=== PATIENT | male | born 1990 | race Caucasian/White ===

== ENCOUNTER 2024-12-07 23:13 | Inpatient (IN) | payer OTHER ==
[~2024-12-07] VITALS: Ht 170.2 cm; Wt 80.7 kg
[2024-12-07 23:48] LABS: CLARITY URINE CLEAR (CLEAR); COLOR URINE YELLOW (YELLOW); GLUCOSE URINE NEGATIVE (NEGATIVE); KETONES URINE NEGATIVE (NEGATIVE); LEUKOCYTE ESTERASE URINE TRACE (NEGATIVE); NITRITE URINE NEGATIVE (NEGATIVE); OCCULT BLOOD URINE 3+ (NEGATIVE); PH URINE 5.5 (4.5-8.0); PROTEIN URINE TRACE (NEGATIVE); UROBILINOGEN URINE 0.2 E.U./dL (0.2-1.0)
[2024-12-08] MEDS: CEFTRIAXONE 1GM/50ML 50 ML IV ONE (02:00)
[2024-12-08 02:20] LABS: CHLORIDE 102 mEq/L (98-107); SODIUM 137 mEq/L (136-145)
[2024-12-08 02:22] LABS: CALCIUM 9.9 mg/dL (8.7-10.4); CARBON DIOXIDE 27 mEq/L (21-32)
[2024-12-08 02:27] LABS: CREATININE 1.4 mg/dL (0.6-1.3); GLUCOSE 130 mg/dL (70-105); UREA NITROGEN BLOOD 11 mg/dL (9-23)
[2024-12-08 02:29] LABS: ALANINE AMINOTRANSFERASE 24 IU/L (10-49); ALBUMIN 4.8 g/dL (3.2-4.8); ASPARTATE AMINOTRANSFERASE 19 IU/L (<34); BILIRUBIN DIRECT 0.2 mg/dL (<=3.0)
[2024-12-08 02:30] LABS: BILIRUBIN TOTAL 0.9 mg/dL (0.1-1.0); PROTEIN TOTAL 7.5 g/dL (6.0-8.3)
[2024-12-08 02:46] LABS: HEMATOCRIT. 47.8 % (42.0-52.0); HEMOGLOBIN. 16.2 g/dL (14.0-18.0); MEAN CORPUSCULAR HEMOGLOBIN 30.6 pg (28.0-32.0); MEAN CORPUSCULAR HGB CONC 33.8 g/dL (31.0-37.0); MEAN CORPUSCULAR VOLUME 90.3 fL (80.0-94.0); MEAN PLATELET VOLUME 8.2 fl (7.4-10.4); PLATELET 338 x1000/uL (130-400); RED CELL DISTRIBUTION WIDTH 14.2 % (11.6-14.6); WHITE BLOOD COUNT 15.1 x1000/uL (4.5-11.0)
[2024-12-08 03:19] LABS: DIFFERENTIAL COMMENT 1
[2024-12-08] MEDS: KETOROLAC 15MG/ML VIAL IM ONE (04:22)
[2024-12-08 05:12] LABS: RBC URINE 50-100 /hpf (0-2); SQUAMOUS EPITHELIAL CELL URINE NONE SEEN /lpf (RARE/1+); WBC URINE 0-2 /hpf (0-2)
[2024-12-08 05:13] LABS: BACTERIA URINE NONE SEEN
[2024-12-08] MEDS ORDERED: HYDROCODONE/ACETAMINOPHEN 5/325MG TABLET PO PRN (09:15)
[2024-12-08] MEDS ORDERED: CLONIDINE 0.1MG TABLET PO PRN (09:15)
[2024-12-08] MEDS ORDERED: ONDANSETRON HCL 4MG/2ML INJ IV PRN (09:15)
[2024-12-08] MEDS ORDERED: ZOLPIDEM TARTRATE 5MG TABLET PO PRN (09:15)
[2024-12-08] MEDS ORDERED: NALOXONE HCL 0.4MG/ML VIAL IV PRN (10:00)
[2024-12-08] MEDS: PANTOPRAZOLE SODIUM 40 MG/VIAL IV SCH (10:30)
[2024-12-08] MEDS: CEFTRIAXONE 1GM/50ML 50 ML IV SCH (10:30)
[2024-12-08] MEDS: SODIUM CHLORIDE 0.9% 1,000 ML IV SCH (10:31)
[2024-12-08] MEDS: ENOXAPARIN 40MG/0.4ML SYR SUBCUT SCH (10:31)
[2024-12-08] MEDS: MORPHINE SULFATE 2 MG/ML INJ (NOT FOR IM USE) IV PRN (10:41)
[2024-12-08 11:00] VITALS: BP 128/78; PULSE 55; RESP 18; TEMP 36.6404
[2024-12-08 12:00] VITALS: BP 128/78; PULSE 55; RESP 20; TEMP 36.55848; O2SAT 98
[2024-12-08] MEDS: KETOROLAC 30MG/ML VIAL IV SCH ×2 (13:22→18:45)
[2024-12-08] MEDS ORDERED: DIAZEPAM 5 MG/ML 2ML SYR IV PRN (17:15)
[2024-12-08 17:33] LABS: PLATELET ESTIMATE NORMAL
[2024-12-08 20:00] VITALS: BP 110/70; PULSE 58; RESP 20; TEMP 36.28068; O2SAT 98
[2024-12-08] MEDS: TAMSULOSIN HCL 0.4MG SR CAPSULE PO SCH (20:36)
[2024-12-09] VITALS (7 sets, daily range): BP systolic 89–144; BP diastolic 46–96; PULSE 55–73; RESP 16–20; TEMP 35.8362–36.55848; O2SAT 97–100
[2024-12-09 06:31] LABS: CHLORIDE 107 mEq/L (98-107); POTASSIUM 3.8 mEq/L (3.5-5.1); SODIUM 138 mEq/L (136-145)
[2024-12-09 06:32] LABS: CALCIUM 8.8 mg/dL (8.7-10.4); CARBON DIOXIDE 25 mEq/L (21-32)
[2024-12-09 06:37] LABS: CREATININE 1.1 mg/dL (0.6-1.3); GLUCOSE 93 mg/dL (70-105); UREA NITROGEN BLOOD 16 mg/dL (9-23)
[2024-12-09 06:56] LABS: BASOPHILS % 0.6 % (0.0-2.0); EOSINOPHILS % 0.9 % (0.0-5.0); HEMOGLOBIN. 14.2 g/dL (14.0-18.0); LYMPHOCYTES % 29.3 % (20.0-50.0); MEAN CORPUSCULAR HEMOGLOBIN 30.6 pg (28.0-32.0); MEAN CORPUSCULAR HGB CONC 33.9 g/dL (31.0-37.0); MEAN CORPUSCULAR VOLUME 90.4 fL (80.0-94.0); MEAN PLATELET VOLUME 8.1 fl (7.4-10.4); NEUTROPHILS % 57.2 % (40.0-76.0); PLATELET 254 x1000/uL (130-400); RED BLOOD CELL COUNT 4.65 mill/uL (4.7-6.1); RED CELL DISTRIBUTION WIDTH 14.2 % (11.6-14.6); WHITE BLOOD COUNT 6.4 x1000/uL (4.5-11.0)
[2024-12-09] MEDS: ACETAMINOPHEN 325MG TABLET PO PRN (08:36)
[2024-12-09] MEDS: CEFTRIAXONE 1GM/50ML 50 ML IV SCH (11:11)
[2024-12-09 16:41] LABS: *AMPHETAMINES SCREEN URINE NEGATIVE (NEGATIVE); *BARBITURATES SCREEN URINE NEGATIVE (NEGATIVE); *BENZODIAZEPINES SCREEN URINE NEGATIVE (NEGATIVE); *COCAINE SCREEN URINE NEGATIVE (NEGATIVE)
[2024-12-09 16:42] LABS: CANNABINOID URINE SCREEN NEGATIVE (NEGATIVE); ECSTASY MDMA SCREEN URINE NEGATIVE (NEGATIVE); METHADONE URINE SCREEN NEGATIVE (NEGATIVE); OPIATES URINE SCREEN NEGATIVE (NEGATIVE); PHENCYCLIDINE URINE SCREEN NEGATIVE (NEGATIVE)
[2024-12-10] VITALS: BP 91/54; PULSE 60; RESP 19; TEMP 36.3918; O2SAT 97
[2024-12-10 04:00] VITALS: BP 111/68; PULSE 62; RESP 18; TEMP 36.50292; O2SAT 97
[2024-12-10] MEDS ORDERED: IOHEXOL-300 100 ML BOTTLE ONE (06:27)
[2024-12-10] MEDS ORDERED: LABETALOL 5MG/ML 4ML INJ IV PRN (08:00)
[2024-12-10] MEDS ORDERED: ONDANSETRON HCL 4MG/2ML INJ IV PRN (08:00)
[2024-12-10] MEDS ORDERED: MEPERIDINE HCL/PF 25MG/ML CPJ IV PRN (08:00)
[2024-12-10] MEDS: HYDROMORPHONE HCL/PF 1MG/ML INJ IV PRN (08:43)
[2024-12-10 10:39] VITALS: BP 113/74; PULSE 56; RESP 18; TEMP 36.55848; O2SAT 99
[2024-12-10 12:00] VITALS: BP 103/62; PULSE 62; RESP 20; TEMP 36.33624; O2SAT 98
[2024-12-10 16:00] VITALS: BP 116/70; PULSE 66; RESP 18; TEMP 36.44736; O2SAT 99
[2024-12-10 20:00] VITALS: BP 102/60; PULSE 62; RESP 17; TEMP 36.72516; O2SAT 98
[2024-12-11] VITALS: BP 98/54; PULSE 57; RESP 16; TEMP 36.61404; O2SAT 98
[2024-12-11 04:00] VITALS: BP 106/73; PULSE 59; RESP 17; TEMP 36.61404; O2SAT 98
[2024-12-11 07:42] LABS: CALCIUM 9.2 mg/dL (8.7-10.4); CARBON DIOXIDE 21 mEq/L (21-32); CHLORIDE 110 mEq/L (98-107); POTASSIUM 4.1 mEq/L (3.5-5.1); SODIUM 140 mEq/L (136-145)
[2024-12-11 07:48] LABS: CREATININE 1.1 mg/dL (0.6-1.3); GLUCOSE 102 mg/dL (70-105); UREA NITROGEN BLOOD 13 mg/dL (9-23)
[2024-12-11 08:00] VITALS: BP 112/72; PULSE 62; RESP 16; TEMP 36.78072; O2SAT 93
[2024-12-11 08:22] LABS: BASOPHILS % 0.5 % (0.0-2.0); EOSINOPHILS % 0.7 % (0.0-5.0); HEMATOCRIT. 45.5 % (42.0-52.0); HEMOGLOBIN. 15.3 g/dL (14.0-18.0); LYMPHOCYTES % 19.5 % (20.0-50.0); MEAN CORPUSCULAR HEMOGLOBIN 30.3 pg (28.0-32.0); MEAN CORPUSCULAR HGB CONC 33.6 g/dL (31.0-37.0); MEAN CORPUSCULAR VOLUME 90.2 fL (80.0-94.0); MEAN PLATELET VOLUME 8.5 fl (7.4-10.4); MONOCYTES % 11.2 % (2.0-8.0); NEUTROPHILS % 68.1 % (40.0-76.0); PLATELET 276 x1000/uL (130-400); RED BLOOD CELL COUNT 5.04 mill/uL (4.7-6.1); RED CELL DISTRIBUTION WIDTH 13.8 % (11.6-14.6); WHITE BLOOD COUNT 7.4 x1000/uL (4.5-11.0)
[2024-12-11 12:00] VITALS: BP 114/72; PULSE 54; RESP 16; TEMP 36.50292; O2SAT 99
[2024-12-11] MEDS ORDERED: CIPR-263 MT (13:09)
[2024-12-11] MEDS ORDERED: HYDR-4001 PO (13:09)
[2024-12-11 13:17] VITALS: BP 114/72; PULSE 54; TEMP 97.7; O2SAT 99
== END 2024-12-11 15:30 | disposition home or self-care (01) | DRG 661 ==
LOC: ER 23:13 → 6WST 12-08 02:05
PROVIDERS: ADMIT Internal Medicine; ATTEND Internal Medicine
PROC: 0TC68ZZ Extirpation of Matter from Right Ureter, Via Natural or Artificial Opening Endoscopic (ICD-10-PCS; principal; 2024-12-10)
PROC: 0T768DZ Dilation of Right Ureter with Intraluminal Device, Via Natural or Artificial Opening Endoscopic (ICD-10-PCS; 2024-12-10)
PROC: BT161ZZ Fluoroscopy of Right Ureter using Low Osmolar Contrast (ICD-10-PCS; 2024-12-10)
DX: N13.2 Hydronephrosis with renal and ureteral calculous obstruction (principal); F17.210 Nicotine dependence, cigarettes, uncomplicated; K81.9 Cholecystitis, unspecified
CPT/HCPCS: 36415; 74176; 74430; 76000; 80048; 80076; 80305; 81003; 85025; 93970; 99285; C1769; J0696; J1171; J1650; J1885; J2270; J2470; J7030; Q9967; C2617